=== PATIENT | female | born 1950 | race Caucasian/White ===

== ENCOUNTER → 2022-10-25 | Day surgery (SDC) | payer OTHER ==
[~2022-10-25] VITALS: Ht 162.6 cm; Wt 74.8 kg
[~2022-10-25] MED LIST: ASPI1TAB20 PO; ATO40T PO; BUPIVACAINE 0.5% P/F INJ 10 ML VIAL ONE; CITA-73 PO; DexAMETHasone SOD PHOS 10MG/1ML VIAL INJ ONE; DexAMETHasone SOD PHOS 4 MG/1ML SDV INJ ONE; FLUMAZENIL 0.1 MG/ML INJ 10ML MDV IV PRN; GLYCOPYRROLATE 0.2 MG/ML 1ML VIAL ONE; HYDROmorphone HCL 2 MG/ML VL/or syr IV PRN; KETOROLAC TROMETH 30 MG/ML 1ML VIAL ONE; LABETALOL HCL 5 MG/ML 4ML SYRINGE IV PRN; LEVO88TA4 PO; LIDOCAINE 2% (LOCAL ANESTH.) PF 5ml SDV ONE; NALOXONE HCL 0.4 MG/ML VIAL IV PRN; ONDANSETRON HCL 4 MG/2 ML VIAL IV PRN; ONDANSETRON HCL 4 MG/2 ML VIAL ONE; PROPOFOL 10 MG/ML 20 ML IV ONE; ceFAZolin 1GM/50ML 100 ML IV ONE; ePHEDrine SULFATE 50 MG/ML AMP IV PRN; fentaNYL CITRATE 100 MCG/2 ML VL IV PRN; hydrALAZINE HCL 20 MG/ML VL IV PRN
[2022-10-25 10:11] VITALS: BP 128/33
== END | disposition home or self-care (01) ==
LOC: SUR 06:38
PROVIDERS: ATTEND Orthopaedic Surgery
DX: S83.412A Sprain of medial collateral ligament of left knee, initial encounter (principal); S83.242A Other tear of medial meniscus, current injury, left knee, initial encounter; M79.4 Hypertrophy of (infrapatellar) fat pad; M22.42 Chondromalacia patellae, left knee; E03.9 Hypothyroidism, unspecified; J44.9 Chronic obstructive pulmonary disease, unspecified; E78.5 Hyperlipidemia, unspecified; X58.XXXA Exposure to other specified factors, initial encounter; Y93.89 Activity, other specified; Y92.89 Other specified places as the place of occurrence of the external cause; Y99.8 Other external cause status; Z88.8 Allergy status to other drugs, medicaments and biological substances; Z87.891 Personal history of nicotine dependence; Z79.890 Hormone replacement therapy; Z79.899 Other long term (current) drug therapy; Z98.890 Other specified postprocedural states; Z20.822 Contact with and (suspected) exposure to COVID-19
CPT/HCPCS: 29881; J0690; J1100; J1885; J2001; J2405; J2704; J3490; U0003

== ENCOUNTER 2024-10-21 07:38 | Day surgery (SDC) | payer OTHER ==
[~2024-10-21] VITALS: Ht 162.6 cm; Wt 83.0 kg
[2024-10-21] VITALS (10 sets, daily range): BP systolic 124; BP diastolic 73; PULSE 82–96; RESP 16–25; TEMP 98.2; O2SAT 93–100
[~2024-10-21 07:38] MED LIST changes: +ALBU0.084 NEB; +ALBUAER3 IN; +APIX5TAB PO; -ATO40T PO; +ATOR-507 PO; -BUPIVACAINE 0.5% P/F INJ 10 ML VIAL ONE; -CITA-73 PO; +CITA-77 PO; -DexAMETHasone SOD PHOS 10MG/1ML VIAL INJ ONE; -DexAMETHasone SOD PHOS 4 MG/1ML SDV INJ ONE; -FLUMAZENIL 0.1 MG/ML INJ 10ML MDV IV PRN; -GLYCOPYRROLATE 0.2 MG/ML 1ML VIAL ONE; -HYDROmorphone HCL 2 MG/ML VL/or syr IV PRN; -KETOROLAC TROMETH 30 MG/ML 1ML VIAL ONE; -LABETALOL HCL 5 MG/ML 4ML SYRINGE IV PRN; +LEVO75TA6 PO; -LEVO88TA4 PO; -LIDOCAINE 2% (LOCAL ANESTH.) PF 5ml SDV ONE; -NALOXONE HCL 0.4 MG/ML VIAL IV PRN; -ONDANSETRON HCL 4 MG/2 ML VIAL IV PRN; -ONDANSETRON HCL 4 MG/2 ML VIAL ONE; -PROPOFOL 10 MG/ML 20 ML IV ONE; -ceFAZolin 1GM/50ML 100 ML IV ONE; -ePHEDrine SULFATE 50 MG/ML AMP IV PRN; -fentaNYL CITRATE 100 MCG/2 ML VL IV PRN; -hydrALAZINE HCL 20 MG/ML VL IV PRN
[2024-10-21] MEDS ORDERED: SODIUM CHLORIDE LOCK 10 ML ONE (08:02)
[2024-10-21] MEDS ORDERED: LIDOCAINE 2%HCL (LOCAL ANESTH.) INJ 20ML MDV ONE (08:02)
[2024-10-21] MEDS ORDERED: LIDOCAINE 2% JELLY 11ml (GLYDO) ONE (08:02)
[2024-10-21] MEDS ORDERED: EPINEPHrine HCL 1 MG/1 ML AMP ONE (08:03)
[2024-10-21] MEDS ORDERED: diphenhdrAMINE HCL 50 MG/1 ML VL ONE (08:04)
[2024-10-21] MEDS ORDERED: MIDAZOLAM HCL 2MG/2ML 2ml VIAL (1mg/ml) ONE (08:05)
[2024-10-21] MEDS ORDERED: GLYCOPYRROLATE 0.2 MG/ML 1ML VIAL ONE (08:07)
[2024-10-21] MEDS: fentaNYL CITRATE 100 MCG/2 ML VL ONE (09:45)
[2024-10-21] MEDS: MIDAZOLAM HCL 5 MG/ML-1ML VIAL ONE (09:45)
--- NOTE | 2024-10-21 10:09 | DVHNC2 ---
Procedure - Bronchoscopy procedure note: Indications: Chronic cough, Possible mucous plugging, BAL for cultures. Medicines: Versed 4 mg, fentanyl 50 mcg, Robinul 0.2 mg, Benadryl 50 mg Complications: None Procedure: Patient medications and allergies reviewed. The risks and benefits of the procedure and the sedation options and risk were discussed with the patient. All questions were answered and informed consent was obtained. Patient identification and proposed procedure were verified prior to the procedure by the physician, and a nurse, and the respiratory therapist in endoscopy room. The heart rate, respiratory rate, oxygen saturations, blood pressure, adequacy of pulmonary ventilation, and response to care were monitored throughout the procedure. The physical status of the patient was reassessed after the procedure. After obtaining informed consent, the bronchoscope was introduced through the endotracheal tube and advanced into the trachea bronchial tree of both lungs. The procedure was accomplished without difficulty. The patient tolerated the procedure well. Findings: The trachea is in normal caliber. The rima is sharp. The tracheobronchial tree of the right lung was examined to at least the first subsegmental level. The bronchial mucosa and anatomy in the right lung are normal. There are no endobronchial lesions. There was no secretions. Notable tracheobronchomalacia bilateral Right middle lobe (RML) Bronchoalveolar lavage (BAL) obtained. RML BAL sent for gram stain and culture, viral culture, fungal culture, and AFB smear and culture. The left upper lobe, lingula, and left lower lobe were examined to at least the first subsegmental level. Bronchial mucosa and anatomy in the left upper lobe and lingula are normal. There were no endobronchial lesions. There was no secretions. Lingular bronchoalveolar lavage was obtained. Lingular BAL will be sent for Gram stain and culture, viral culture, fungal culture, and AFB smear and culture. There was no active bleeding at the completion of the procedure. Estimated blood loss: Less than 5 mL. Impression: Tracheobronchomalacia RML BAL performed Lingular BAL performed Recommendation: Follow-up RML BAL and lingular BAL results. Procedure codes: 14459, bronchoscopy, rigid and flexible, including fluoroscopic guidance, one performed; with bronchial endobronchial broncho-alveolar lavage, single or multiple sites MADISON LEES MD Oct 21, 2024 10:09
--- NOTE | 2024-10-21 10:13 | DVHNC2 ---
Procedure - I administered moderate sedation throughout the 40 minutes of the procedure. An independent observer administered medications at my direction and monitored the patient's level of consciousness and physiological status throughout the procedure. CPT 10555 for the first 15 minutes. CONSCIOUS SEDATION PROCEDURE NOTE: Procedural Sedation Performed by: Dr Wood Indications: Bronchoscopy with Bronchoalveolar lavage (BAL) [place] Protocol: a time out was performed and the correct patient and site were verified Consent: The risks and benefits of monitored anesthesia care, including the risk of aspiration, deep sedation requiring airway management including possible intubation, nausea/vomiting and the risks of not performing the procedure, including severe pain and inability to complete the procedure, were all discussed with the patient. The alternatives of performing the procedure, including local anesthesia and IV analgesia, also discussed. The patient has a ride home available. ASA Class: II-mild systemic disease Mallampati Score: 2 Pre-anesthesia evaluation, including history, exam, and informed consent is documented in the note above. Monitoring: Continuous monitoring of heart rate, respiratory rate, pulse oximetry and ETCO2. Supplemental oxygen prior to and during procedure via nasal cannula. Resuscitation equipment available at the bedside during sedation. Intra-service start time: 0949 am Intra-service stop time: 957 am The patient received fentanyl 50 mcg IV push, Versed 4 mg IV push, Robinul 0.2 mg IV push, Benadryl 50 mg IV push and dosages were recorded on the sedation form. The patient was recovered from the sedation without complication or incident. Patient returned to pre-sedation level of awareness. The monitoring was discontinued at this time. Post-anesthesia evaluation: Respiratory function, cardiovascular function, temperature, and mental status did return to pre-anesthetic state. Pain was controlled. The patient did tolerate p.o. MADISON WOOD MD Oct 21, 2024 10:13
[2024-10-21] MEDS ORDERED: IPRATROPIUM BROM 0.5 MG/2.5ML INH SOL ONE (10:32)
[2024-10-21] MEDS ORDERED: ALBUTEROL SULF 2.5 MG/0.5ML(0.5%) NEB SOLN ONE (10:32)
--- NOTE | 2024-10-21 11:01 | DVH ---
CHEST RADIOGRAPH Indication: s/p bronchoscopy r/o PTX Technique: Single frontal view of the chest was obtained COMPARISON: None FINDINGS: Lines and Tubes: None Lungs: Right lower lobe airspace disease. Pleura: No effusion. No pneumothorax. Cardiomediastinal contours: Unremarkable Bones: Unremarkable IMPRESSION: Right lower lobe airspace disease. No appreciable pneumothorax.
[2024-10-21] MEDS: ALBUTEROL SULF 2.5 MG/0.5ML(0.5%) NEB SOLN NEB STA (11:30)
[2024-10-21] MEDS: IPRATROPIUM BROM 0.5 MG/2.5ML INH SOL NEB PRN (12:19)
[2024-10-21] MEDS: methylPREDNISolone SOD SUCC 125 MG/2 ML VL IV ONE (12:24)
[2024-10-21] MEDS ORDERED: EPINEPHrine HCL 0.5 ML NEB NEB ONE (12:30)
== END 2024-10-21 14:00 | disposition home or self-care (01) ==
LOC: GI 07:38
PROVIDERS: ATTEND Internal Medicine Pulmonary Disease
DX: J47.9 Bronchiectasis, uncomplicated (principal); J98.4 Other disorders of lung; R05.3 Chronic cough; J98.09 Other diseases of bronchus, not elsewhere classified; J41.1 Mucopurulent chronic bronchitis; R06.09 Other forms of dyspnea; E03.9 Hypothyroidism, unspecified; F32.A Depression, unspecified; Z79.899 Other long term (current) drug therapy; Z79.890 Hormone replacement therapy; Z87.891 Personal history of nicotine dependence; Z90.49 Acquired absence of other specified parts of digestive tract; Z98.890 Other specified postprocedural states; Z86.711 Personal history of pulmonary embolism; Z91.040 Latex allergy status
CPT/HCPCS: 31624; 71045; 87070; 87205; 94640; J1200; J2250; J2919; J3010; 99152; J0171